=== PATIENT | female | born 2005 | race Caucasian/White ===

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

== ENCOUNTER 2025-03-24 02:45 | Emergency (ER) | payer MEDICAID | END 2025-03-24 03:51 | disposition home or self-care (01) | LOC: VM.ED 02:45 | DX: H60.391 Other infective otitis externa, right ear (principal); Z79.899 Other long term (current) drug therapy | CPT/HCPCS: 99282; 99283 ==